=== PATIENT | male | born 1975 | race Caucasian/White ===

== ENCOUNTER 2021-02-12 21:00 | Emergency (ER) | payer MEDICAID, OTHER ==
[2021-02-12 21:39] VITALS: BP 144/85; PULSE 60
[2021-02-12] MEDS ORDERED: Lidocaine 5% 700 MG Patch TRDERM ONE (21:48)
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
== END 2021-02-12 22:50 | disposition home or self-care (01) ==
LOC: JP.ED 21:00
DX: S20.211A Contusion of right front wall of thorax, initial encounter (principal); Z72.0 Tobacco use; Z88.0 Allergy status to penicillin; V29.9XXA Motorcycle rider (driver) (passenger) injured in unspecified traffic accident, initial encounter; Y93.55 Activity, bike riding
CPT/HCPCS: 71101; 99283; A9270

== ENCOUNTER 2023-02-03 11:55 | Emergency (ER) | payer OTHER, MEDICAID ==
[2023-02-03 12:52] LABS: HEMATOCRIT 48.5 % (38.4-49.7); HEMOGLOBIN 17.1 g/dL (12.9-16.9); MEAN CORPUSCULAR HEMOGLOBIN 29.6 pg (31.6-35.5); MEAN CORPUSCULAR HGB CONC 35.3 g/dL (31.6-35.5); MEAN CORPUSCULAR VOLUME 84.1 fL (81.4-99.0); RED BLOOD CELL COUNT 5.77 M/uL (4.14-5.76); WHITE BLOOD CELL COUNT,WBC 5.6 K/uL (3.2-11.0)
[2023-02-03 13:19] LABS: CALCIUM 9.3 mg/dL (8.5-10.1); EST CRCL DRUG DOSING (CG) 81.52 mL/min; POTASSIUM,K 4.5 mmol/L (3.6-5.2); TROPONIN I HIGH SENSITIVITY 16.1 pg/mL (<=60.3)
[2023-02-03 13:20] LABS: ANION GAP 9.5 mmol/L (5.0-14.0)
[2023-02-03 14:15] VITALS: BP 119/70; PULSE 60
== END 2023-02-03 14:05 | disposition home or self-care (01) ==
LOC: JP.ED 11:55
DX: T22.012A Burn of unspecified degree of left forearm, initial encounter (principal); Z88.0 Allergy status to penicillin; X19.XXXA Contact with other heat and hot substances, initial encounter
CPT/HCPCS: 36415; 80048; 82550; 83605; 83735; 84484; 85027; 93005; 99283

== ENCOUNTER 2023-06-19 19:23 | Emergency (ER) | payer MEDICAID, OTHER ==
[2023-06-19 19:42] LABS: BASOPHILS ABSOLUTE AUTO 0.03 K/uL (0.00-0.10); BASOPHILS PERCENT AUTO 0.3 % (0.1-1.3); EOSINOPHILS ABSOLUTE AUTO 0.17 K/uL (0.00-0.40); EOSINOPHILS PERCENT AUTO 1.9 % (0.0-5.4); HEMATOCRIT 44.6 % (38.4-49.7); HEMOGLOBIN 15.8 g/dL (12.9-16.9); IMMATURE GRAN ABSOLUTE AUTO 0.04 K/uL (0.00-0.23); IMMATURE GRAN PERCENT AUTO 0.5 % (0.0-0.7); LYMPHOCYTES ABSOLUTE AUTO 3.25 K/uL (0.8-3.3); LYMPHOCYTES PERCENT AUTO 36.9 % (11.4-47.7); MEAN CORPUSCULAR HEMOGLOBIN 29.8 pg (31.6-35.5); MEAN CORPUSCULAR HGB CONC 35.4 g/dL (31.6-35.5); MEAN CORPUSCULAR VOLUME 84.2 fL (81.4-99.0); MONOCYTES ABSOLUTE AUTO 0.75 K/uL (0.20-0.90); MONOCYTES PERCENT AUTO 8.5 % (3.3-12.6); NEUTROPHILS ABSOLUTE AUTO 4.56 K/uL (1.0-7.6); NEUTROPHILS PERCENT AUTO 51.9 % (40.0-78.1); PLATELET COUNT,PLT 222 K/uL (130-375); WHITE BLOOD CELL COUNT,WBC 8.8 K/uL (3.2-11.0)
[2023-06-19 19:54] VITALS: BP 162/90; PULSE 65
[2023-06-19 20:05] LABS: BLOOD UREA NITROGEN,BUN 14 mg/dL (7-18); CALCIUM 8.7 mg/dL (8.5-10.1); CARBON DIOXIDE,CO2 30 mmol/L (21-32); CHLORIDE,CL 105 mmol/L (100-108); CREATININE 0.9 mg/dL (0.8-1.3); ESTIMATED GFR 105 mL/min (>60); GLUCOSE RANDOM 108 mg/dL (74-106); POTASSIUM,K 3.9 mmol/L (3.6-5.2); SODIUM,NA 141 mmol/L (140-148); TROPONIN I HIGH SENSITIVITY 4.9 pg/mL (<=60.3)
[2023-06-19] MEDS ORDERED: Acetaminophen 500 MG Tab PO ONE (20:26)
[2023-06-19] MEDS ORDERED: Cyclobenzaprine 10 MG Tab PO ONE (20:26)
== END 2023-06-19 20:55 ==
LOC: JP.ED 19:23
DX: S29.011A Strain of muscle and tendon of front wall of thorax, initial encounter (principal); I25.2 Old myocardial infarction; Z88.0 Allergy status to penicillin
CPT/HCPCS: 36415; 80048; 84484; 85025; 85379; 93005; 99285; A9270

== ENCOUNTER 2024-09-13 16:12 | Emergency (ER) | payer MEDICAID ==
[2024-09-13 16:25] VITALS: BP 125/73; PULSE 67
[2024-09-13] MEDS: Ketorolac 30 MG/ML SDV IM ONE (16:47)
[2024-09-13] MEDS: Cyclobenzaprine 10 MG Tab PO ONE (16:47)
== END 2024-09-13 17:37 | disposition home or self-care (01) ==
LOC: JP.ED 16:12
DX: R10.9 Unspecified abdominal pain (principal); I25.2 Old myocardial infarction; Z88.0 Allergy status to penicillin
CPT/HCPCS: 96372; 99283; A9270; J1885